=== PATIENT | male | born 1970 | race Caucasian/White ===

== ENCOUNTER → 2018-09-04 | Outpatient (CLI) | payer BC ==
--- NOTE | 2018-09-04 15:22 | KCIC ---
MRI left midfoot without contrast dated 09/04/2018 2:45 PM Indication: Left foot pain. No known injury. Pain across dorsal lateral aspect of the foot and ankle for 7 months . .. Comparison: Plain films dated 08/22/2018. Technique: Routine multiplanar multisequence imaging performed. . Findings: There is hyperintense T2 signal within the marrow of the cuboid bone and lateral cuneiform. There is also minimal edema within the lateral aspect of the navicular bone and intermediate cuneiform. No discrete fracture line. Mild edema within the adjacent soft tissues. Mild degenerative change of the Lisfranc joints. The Lisfranc ligament complex is grossly intact. No significant edema within the sinus tarsi. Plantar fascia is grossly intact. No additional areas of bone marrow edema. Mild hypertrophic change of the tibiotalar joint and subtalar joints. No joint effusion or loose body. Ankle ligaments are not well evaluated based on technique. Flexor and extensor tendons are intact. Small amount of fluid along the superior peroneal retinaculum. The peroneal tendons are otherwise intact. There is bipartite medial and lateral sesamoid bones. No evidence of acute fracture. There is a small cystic focus along the medial aspect of the medial sesamoid with mild degenerative change at the medial sesamoid bone margins. Mild degenerative change of the first MTP joint. IMPRESSION: 1. Patchy bone marrow edema within the cuboid and medial and intermediate cuneiform bones, nonspecific. Consider bone contusion or stress reaction. Reactive edema from underlying degenerative changes also possible. 2. No evidence of acute sesamoid fracture. There are bipartite medial and lateral sesamoids. Mild degenerative change of the medial sesamoid with adjacent small cyst. 3. Additional degenerative changes as described above. Electronically signed by: Romulo Bowling MD (09/04/2018 3:19 PM) [id number]
== END | disposition home or self-care (01) ==
LOC: KCIC MRI 14:07
DX: M19.072 Primary osteoarthritis, left ankle and foot (principal); M85.672 Other cyst of bone, left ankle and foot; R60.0 Localized edema
CPT/HCPCS: 73718

== ENCOUNTER 2021-02-15 17:01 | Emergency (ER) | payer BC ==
[2020-09-09 15:00] VITALS: BP 140/67
[~2021-02-15 17:01] MED LIST: LOSA100T2 PO; VALS160T3 PO; VALS40TA10 PO
== END 2021-02-15 17:27 | disposition left against medical advice (07) ==
LOC: ER 17:01
DX: R09.89 Other specified symptoms and signs involving the circulatory and respiratory systems (principal); Z53.21 Procedure and treatment not carried out due to patient leaving prior to being seen by health care provider